=== PATIENT | male | born 1950 | race Caucasian/White ===

== ENCOUNTER 2016-06-20 10:15 | Inpatient (IN) | payer BC ==
--- NOTE | ~2016-06-20 | OP ---
Record Of Operation [facility] [address] [place]. [address] NAME: ALIDA RIVERA : 54 STATUS : ADM IN PAT#: [id number] AGE: 66 ADM/REG DATE : 06/20/16 MR#: [id number] REPORT SERV DATE: 06/25/16 DICTATED BY: CJ BROWNE II DATE: 06/25/16 REPORT STATUS : Draft TRANSCRIBED BY: DRE DATE: 06/25/16 DATE OF PROCEDURE: 06/25/2016 PREOPERATIVE DIAGNOSES: 1. Occluded left subclavian artery. 2. 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 POSTOPERATIVE DIAGNOSES: 1. Occluded left subclavian artery. 2. 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 PROCEDURES: 1. Arch aortogram from the right femoral approach. 2. Left upper extremity angiogram. 3. Percutaneous primary stent placement of left upper extremity subclavian artery occlusion. ANESTHESIA: Local MAC. IV FLUIDS: 350 mL. ESTIMATED BLOOD LOSS: 15 mL. CONTRAST: 58. BRIEF HISTORY: Mr. Rivera is a 66-year-old gentleman who presents with complaints in the left arm. He reports a chronic fatigue as well as pain in the left hand that happens occasionally at night. He also reports chronic dizziness that is specifically increased when he is using his upper extremities. He again underwent imaging that demonstrates complete occlusion of the subclavian artery. DESCRIPTION OF PROCEDURE: He was taken to the operating room and placed in a supine position on the table. Both groins were prepped and draped. I used ultrasound to identify the right common femoral artery, performed a puncture, and placed a 6-Turkish sheath. Aortic catheter was placed, arch aortogram demonstrates a patent thoracic aorta with normal branching. The innominate and left carotid were patent. The left subclavian was patent, but just beyond the origin, it was occluded. There was reconstitution of the artery proximal to the vertebral, remaining left upper extremity vessels that were visualized were patent with no distal stenosis seen. Systemic heparin was then given and we passed a catheter into the origin of the subclavian. We were able to pass a wire and catheter through the occlusion and into the true lumen of the subclavian proximal to the vertebral. At this point, we confirmed this with contrast injection and I proceeded with primary stent placement. An 8 mm x 38 mm covered stent was placed at the subclavian artery at the site of the occlusion and deployed without difficulty, completion demonstrates now a widely patent subclavian with no further stenosis, antegrade flow in the vertebral and rapid flow demonstrated distally. We then removed all the wires and catheters and closed percutaneously. At the end of the Record Of Operation [facility] [address] [facility] [place] [address] NAME: ALIDA RIVERA : 54 STATUS : ADM IN PAT#: [id number] AGE: 66 ADM/REG DATE : 06/20/16 MR#: [id number] REPORT SERV DATE: 06/25/16 DICTATED BY: CJ BROWNE II DATE: 06/25/16 REPORT STATUS : Draft TRANSCRIBED BY: DRE DATE: 06/25/16 procedure, the patient was stable and tolerated it well. ISRAEL/DRE Cj Browne II, M.D. / [id number] CC: MD Lucie Hitchcock MD
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
--- NOTE | ~2016-06-20 | DS ---
Discharge Summary [facility] [address] [place]. [address] NAME: ALIDA RIVERA : 54 STATUS : DIS IN PAT#: [id number] AGE: 66 ADM/REG DATE : 06/20/16 MR#: [id number] REPORT SERV DATE: 06/27/16 DICTATED BY: FERNANDO RAMIREZ DATE: 06/26/16 REPORT STATUS : Draft TRANSCRIBED BY: MODL DATE: 06/26/16 ADMISSION DATE: 06/20/2016 DISCHARGE DATE: 06/26/2016 CONSULTANTS: 1. Bradley Pfeiffer M.D. for Neurology. 2. Cj Mehta M.D. for Vascular. PROCEDURES DONE: 1. On 06/20/2016 chest x-ray: No acute cardiopulmonary abnormality. 2. On 06/20/2016 MRA of the head: There are some mild atherosclerotic features present with no significant stenosis at the junction of non-dominant left vertebral body with the basilar artery. No high-grade or other intracranial stenosis, aneurysm or vasculitis is detected. 3. MRA of the neck: There appears to be internal occlusion of the nondominant left vertebral artery. Indeterminate age. Right vertebral intact normal. Carotids intact normal. 4. On 06/20/2016 MRA of the brain: No evidence of acute infarct or bleed. Of these one small gliotic area and unidentified bright object in the right mid centrum semiovale, long differential list. Usually there is also small incidental left subclinical vascular event. This is not acute. I doubt this is of any current clinical significance. 5. On 06/21/2016 myocardial perfusion scan which was negative. 6. On 06/22/2016 CTA of the neck: Occlusion of the left subclavian artery approximately 15 mm from its origin. Left subclavian artery is reconstituted just prior to the origin of left vertebral artery and left thoraco-cervical trunk. These angiographic findings are consistent with left subclavian steal. Right vertebral artery is dominant. Left vertebral artery is visualized throughout its course. Common carotid arteries, and internal and external carotid arteries exhibit no significant stenosis. 7. On 06/22/2016 CTA of the brain with and without contrast: Intracranial circulation is unremarkable, whereas [place] of [place] is intact. Basilar artery is normal in caliber. Both vertebral arteries are visualized. 8. On 06/25/2016 endovascular procedure done by Dr. Mehta. PREOPERATIVE DIAGNOSES: Occluded left subclavian artery. Ischemic left arm with subclavian steal. PROCEDURES DONE: Arch aortogram from the right femoral approach. Left upper extremity angiogram. Percutaneous primary stent placement at the left upper extremity subclavian artery occlusion. REASON FOR ADMISSION: Syncopal episode with left-sided weakness. HISTORY OF HOSPITAL STAY: Please refer to 06/22/[address] Meliton Jr. The patient was kept for further evaluation for his left arm, chest pain/weakness. Nuclear Discharge Summary [place] [address] [place]. [address] NAME: ALIDA RIVERA : 54 STATUS : DIS IN PAT#: [id number] AGE: 66 ADM/REG DATE : 06/20/16 MR#: [id number] REPORT SERV DATE: 06/27/16 DICTATED BY: FERNANDO RAMIREZ DATE: 06/26/16 REPORT STATUS : Draft TRANSCRIBED BY: DRE DATE: 06/26/16 Medicine scan was negative for any type of ischemia. However, CTA of the neck shows a left subclavian steal. Dr. Mehta was consulted for further evaluation and treatment, and the patient underwent vascular scan. The patient did well without any complications. After having stent placed in, his left subclavian steal was resolved. The patient advised to follow up with Vascular within two to three weeks' time upon discharge. DISPOSITION: The patient feels fine, no complaints. ACTIVITY: As tolerated. DIET: Cardiac. INSTRUCTIONS UPON DISCHARGE: The patient will follow up with Vascular within two to three weeks. MEDICATION UPON DISCHARGE: 1. Aspirin 81 mg p.o. daily. 2. Neurontin 800 mg p.o. daily. 3. Lisinopril 10 mg p.o. daily. 4. Lovastatin 40 mg p.o. q.h.s. 5. Metoprolol 25 mg p.o. b.i.d. 6. Prilosec 20 mg daily. 7. Seroquel 150 mg p.o. q.h.s. 8. Symbicort 160/4.5 mcg two puffs b.i.d. 9. Patriot 10/325 mg one tablet four times a day. 10.Xanax 1 mg p.o. t.i.d. 11.Proventil one puff p.r.n. DIAGNOSES UPON DISCHARGE: 1. Chronic left chest pain secondary to left subclavian steal syndrome. 2. Left subclavian steel syndrome, status post stent placement. 3. Hypertension. 4. Acute kidney injury. 5. Facial pain secondary to trauma. BOOKER/AMANDAL Fernando Ramirez MD / [id number] CC: MD Lucie Hitchcock MD
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
[2016-06-20 10:15] LABS: BASOPHILS 0.2 %; BASOPHILS ABSOLUTE 0.01 10/3/uL (0.0-0.16); EOSINOPHILS 2.1 %; ER CBC TAT 0 Hrs 03 Mins; HEMATOCRIT 41.4 % (40.0-51.0); HEMOGLOBIN 13.7 g/dL (13.6-17.8); IMMATURE GRANULOCYTES 0.4 %; IMMATURE GRANULOCYTES ABSOLUTE 0.02 10/3/uL (0.0-0.11); LYMPHOCYTES 22.4 %; LYMPHOCYTES ABSOLUTE 1.06 10/3/uL (0.67-4.30); MEAN CORPUS HGB CONC 33.1 g/dL (32.0-36.0); MEAN CORPUSCULAR HEMOGLOB 30.4 pg (26.0-34.0); MEAN PLATELET VOLUME 10.1 fL (9.2-13.0); MONOCYTES 7.8 %; MONOCYTES ABSOLUTE 0.37 10/3/uL (0.21-1.20); NEUTROPHILS 67.1 %; NEUTROPHILS ABSOLUTE 3.17 10/3/uL (2.02-8.40); PLATELET COUNT 143 10/3/uL (150-400); RBC DISTRIBUTION WIDTH 13.4 % (12.0-16.0); WHITE BLOOD CELLS 4.7 10/3/uL (4.5-10.5)
[~2016-06-20 10:15] MED LIST: ACCUNEB INH; AMB10 PO; ASAB PO; DIABETA5 PO; FISH-EPA1000 MG PO; LOP50 PO; MEVACOR40 MG PO; MONOKET PO; NEUR800 PO; NITROSTAT0.4 MG SL; PRILO PO; PRIN20 PO; QVAR80 MCG INH; THORAZINE 50 MG50 MG PO
[2016-06-20 10:17] LABS: MANUAL DIFF NO %
[2016-06-20 10:25] LABS: INTERNATIONAL NORMAL RATI 1.1 UNITS (-); PARTIAL THROMBO TIME 30.1 SEC (22.5-37.2); PROTIME (NOT ORD) 13.9 SEC (12.0-14.5)
[2016-06-20] MEDS ORDERED: PRILO PO (10:28)
[2016-06-20] MEDS ORDERED: AUGMENTIN PO (10:28)
[2016-06-20] MEDS ORDERED: LOP25 PO (10:28)
[2016-06-20] MEDS ORDERED: MEVACOR40 MG PO (10:29)
[2016-06-20] MEDS ORDERED: PRIN10 PO (10:29)
[2016-06-20] MEDS ORDERED: HALF81 PO (10:30)
[2016-06-20] MEDS ORDERED: NORCO1 TAB PO (10:30)
[2016-06-20] MEDS ORDERED: XANAX1 MG PO (10:31)
[2016-06-20] MEDS ORDERED: SYMBICORT 160/41 INH INH (10:31)
[2016-06-20] MEDS ORDERED: SEROQUEL50 MG PO (10:31)
[2016-06-20] MEDS ORDERED: NEUR800 PO (10:31)
[2016-06-20] MEDS ORDERED: PROVHFA INH (10:32)
[2016-06-20 10:36] LABS: BUN (BLOOD UREA NITROGEN) 12 MG/DL (6-23); CALCIUM, SERUM 8.3 MG/DL (8.5-10.4); CHEST PAIN PROFILE TAT 0 Hrs 24 Mins; CHLORIDE, SERUM 107 MMOL/L (96-112); CO2 (CARBON DIOXIDE) 28 MMOL/L (24-34); CREATININE 1.46 MG/DL (0.70-1.30); GFR AFRICAN AMERICAN 58 ML/MIN (>=60); GFR NON AFRICAN AMERICAN 50 ML/MIN (>=60); GLUCOSE, SERUM 98 MG/DL (60-99); POTASSIUM, SERUM 5.1 MMOL/L (3.5-5.3); SODIUM, SERUM 140 MMOL/L (135-148); TROPONIN I <0.02 NG/ML (<0.05)
[2016-06-22 11:04] LABS: CREATININE 1.39 MG/DL (0.70-1.30)
[2016-06-22 19:22] LABS: CALCIUM, SERUM 8.7 MG/DL (8.5-10.4); CHLORIDE, SERUM 106 MMOL/L (96-112); CO2 (CARBON DIOXIDE) 26 MMOL/L (24-34); CREATININE 1.32 MG/DL (0.70-1.30); GFR AFRICAN AMERICAN 66 ML/MIN (>=60); GFR NON AFRICAN AMERICAN 57 ML/MIN (>=60); GLUCOSE, SERUM 86 MG/DL (60-99); SODIUM, SERUM 141 MMOL/L (135-148)
[2016-06-22 19:26] LABS: BUN (BLOOD UREA NITROGEN) 16 MG/DL (6-23)
[2016-06-24 02:26] LABS: CREATININE 1.46 MG/DL (0.70-1.30)
[2016-06-24 06:49] LABS: BASOPHILS 0.2 %; BASOPHILS ABSOLUTE 0.01 10/3/uL (0.0-0.16); EOSINOPHILS 4.1 %; EOSINOPHILS ABSOLUTE 0.21 10/3/uL (0.0-0.53); HEMATOCRIT 40.3 % (40.0-51.0); HEMOGLOBIN 13.4 g/dL (13.6-17.8); IMMATURE GRANULOCYTES 0.4 %; IMMATURE GRANULOCYTES ABSOLUTE 0.02 10/3/uL (0.0-0.11); LYMPHOCYTES 37.6 %; LYMPHOCYTES ABSOLUTE 1.92 10/3/uL (0.67-4.30); MEAN CORPUS HGB CONC 33.3 g/dL (32.0-36.0); MEAN CORPUSCULAR HEMOGLOB 30.2 pg (26.0-34.0); MEAN CORPUSCULAR VOLUME 90.8 fL (80-100); MEAN PLATELET VOLUME 9.6 fL (9.2-13.0); MONOCYTES 6.9 %; MONOCYTES ABSOLUTE 0.35 10/3/uL (0.21-1.20); NEUTROPHILS 50.8 %; NEUTROPHILS ABSOLUTE 2.59 10/3/uL (2.02-8.40); PLATELET COUNT 154 10/3/uL (150-400); RBC DISTRIBUTION WIDTH 13.1 % (12.0-16.0); RED CELL COUNT 4.44 10/6/uL (4.7-6.1); WHITE BLOOD CELLS 5.1 10/3/uL (4.5-10.5)
[2016-06-24 06:55] LABS: MANUAL DIFF NO %
[2016-06-24 07:03] LABS: A/G RATIO 0.9 (0.7-1.9); ALKALINE PHOSPHATASE 64 U/L (45-117); BUN (BLOOD UREA NITROGEN) 16 MG/DL (6-23); CALCIUM, SERUM 8.5 MG/DL (8.5-10.4); CHLORIDE, SERUM 109 MMOL/L (96-112); CO2 (CARBON DIOXIDE) 25 MMOL/L (24-34); CREATININE 1.14 MG/DL (0.70-1.30); GFR AFRICAN AMERICAN 78 ML/MIN (>=60); GFR NON AFRICAN AMERICAN 68 ML/MIN (>=60); GLOBULIN 3.2 G/DL (2.5-4.1); GLUCOSE, SERUM 96 MG/DL (60-99); POTASSIUM, SERUM 4.3 MMOL/L (3.5-5.3); SGOT(AST) 15 U/L (5-40); SGPT(ALT) 18 U/L (5-65); SODIUM, SERUM 141 MMOL/L (135-148); TOTAL BILIRUBIN 0.3 MG/DL (0-1.2); TOTAL PROTEIN 6.2 G/DL (6.0-8.5)
[2016-06-26 04:16] LABS: BASOPHILS 0.1 %; BASOPHILS ABSOLUTE 0.01 10/3/uL (0.0-0.16); EOSINOPHILS ABSOLUTE 0.15 10/3/uL (0.0-0.53); HEMATOCRIT 37.7 % (40.0-51.0); HEMOGLOBIN 12.6 g/dL (13.6-17.8); IMMATURE GRANULOCYTES 0.3 %; IMMATURE GRANULOCYTES ABSOLUTE 0.02 10/3/uL (0.0-0.11); LYMPHOCYTES 16.2 %; LYMPHOCYTES ABSOLUTE 1.22 10/3/uL (0.67-4.30); MEAN CORPUS HGB CONC 33.4 g/dL (32.0-36.0); MEAN CORPUSCULAR HEMOGLOB 31.5 pg (26.0-34.0); MEAN PLATELET VOLUME 9.7 fL (9.2-13.0); MONOCYTES 6.8 %; MONOCYTES ABSOLUTE 0.51 10/3/uL (0.21-1.20); NEUTROPHILS 74.6 %; NEUTROPHILS ABSOLUTE 5.61 10/3/uL (2.02-8.40); PLATELET COUNT 171 10/3/uL (150-400); RBC DISTRIBUTION WIDTH 13.1 % (12.0-16.0)
[2016-06-26 04:17] LABS: MANUAL DIFF NO %; MEAN CORPUSCULAR VOLUME 94.3 fL (80-100); WHITE BLOOD CELLS 7.5 10/3/uL (4.5-10.5)
[2016-06-26 05:21] LABS: ALBUMIN 2.9 G/DL (3.5-5.0); ALKALINE PHOSPHATASE 69 U/L (45-117); BUN (BLOOD UREA NITROGEN) 16 MG/DL (6-23); CALCIUM, SERUM 8.3 MG/DL (8.5-10.4); CHLORIDE, SERUM 100 MMOL/L (96-112); CO2 (CARBON DIOXIDE) 27 MMOL/L (24-34); CREATININE 1.27 MG/DL (0.70-1.30); GFR AFRICAN AMERICAN 69 ML/MIN (>=60); GFR NON AFRICAN AMERICAN 59 ML/MIN (>=60); GLOBULIN 2.9 G/DL (2.5-4.1); GLUCOSE, SERUM 168 MG/DL (60-99); PHOSPHORUS, SERUM 2.3 MG/DL (2.5-4.5); POTASSIUM, SERUM 4.2 MMOL/L (3.5-5.3); SGOT(AST) 12 U/L (5-40); SGPT(ALT) 17 U/L (5-65); SODIUM, SERUM 136 MMOL/L (135-148); TOTAL BILIRUBIN 0.5 MG/DL (0-1.2); TOTAL PROTEIN 5.8 G/DL (6.0-8.5)
[2016-06-26] MEDS ORDERED: PLAVIX PO (17:36)
== END 2016-06-26 19:24 | disposition home or self-care (01) | DRG 253 ==
LOC: ER 10:15 → CDU1 14:19 → CDU2 14:23 → 6NO 06-22 18:15
PROVIDERS: Emergency Medicine; Hospitalist; Nurse Practitioner Adult Health; Surgery
PROC: 03743DZ Dilation of Left Subclavian Artery with Intraluminal Device, Percutaneous Approach (ICD-10-PCS; principal; 2016-06-25 07:45)
PROC: B3101ZZ Fluoroscopy of Thoracic Aorta using Low Osmolar Contrast (ICD-10-PCS; 2016-06-25 07:45)
DX: I77.1 Stricture of artery (principal); G45.8 Other transient cerebral ischemic attacks and related syndromes; N17.9 Acute kidney failure, unspecified; I10 Essential (primary) hypertension; G89.4 Chronic pain syndrome; R55 Syncope and collapse; Z79.82 Long term (current) use of aspirin; Z82.3 Family history of stroke; Z83.3 Family history of diabetes mellitus; Z79.899 Other long term (current) drug therapy
CPT/HCPCS: 36215; 36221; 37236; 70496; 70498; 70544; 70547; 70551; 71010; 78452; 80048; 80053; 82565; 83735; 84100; 84484; 84520; 85025; 85610; 85730; 93005; 93017; 93226; 93975; 94640; 99285; A9270-GY; A9502; C1760; C1769; C1874; C1894; J0153; J2270; J3010; Q9966; Q9967